=== PATIENT | female | born 1975 | race Caucasian/White ===

== ENCOUNTER 2017-10-09 20:16 | Emergency (ER) | payer BC ==
[2017-10-09] MEDS ORDERED: ONDANSETRON 4 MG/2 ML VIAL IVP STA (21:36)
[2017-10-09] MEDS ORDERED: MORPHINE SULFATE 2 MG/ML SYRINGE IVP STA (21:36)
[2017-10-09] MEDS ORDERED: SODIUM CHLORIDE 0.9% 1,000 ML IV STA (21:36)
[2017-10-09] MEDS ORDERED: diphenhydrAMINE 50 MG/ML 1 ML VIAL IVP STA (21:36)
[2017-10-09 23:11] LABS: Appearance,Urine Cloudy (Clear); Bacteria,Urine Rare /hpf; Bilirubin,Urine Negative (Negative); Blood,Urine Negative (Negative); Color,Urine Yellow; Glucose,Urine (UA) Negative (Negative); Ketones,Urine 2+ (Negative); Leukocyte Esterase,Urine Trace (Negative); Mucus,Urine Many /hpf; Nitrite,Urine Negative (Negative); PH, Urine 5.5 (5.0-8.0); Protein,Urine Trace (Negative); RBC,Urine 1 /hpf (0-5); Specific Gravity,Urine 1.018 (1.001-1.035); Squamous Epithelial Cell,Urine 6 /hpf (0-4); Urobilinogen,Urine <2.0 mg/dL (<2.0); WBC,Urine 2 /hpf (0-5)
[2017-10-09 23:12] LABS: Chloride 104 mmol/L (98-107)
[2017-10-09 23:13] LABS: ALT 29 U/L (9-52); AST 23 U/L (14-36); Albumin 4.1 g/dL (3.5-5.0); Alkaline Phosphatase 73 U/L (38-126); Amylase 45 U/L (30-110); Anion Gap 11 mmol/L; Blood Urea Nitrogen 10 mg/dL (7-17); Calcium 9.2 mg/dL (8.4-10.2); Carbon Dioxide 23 mmol/L (22-30); Glucose 103 mg/dL (74-99); Lipase 51 U/L (23-300); Potassium 3.9 mmol/L (3.5-5.1); Sodium 138 mmol/L (137-145); Total Bilirubin 0.6 mg/dL (0.2-1.3); Total Protein 7.4 g/dL (6.3-8.2)
[2017-10-09 23:14] LABS: Basophils % (A) 0 %; Eosinophils % (A) 0 %; HCT 41.1 % (34.0-46.0); HGB 13.5 gm/dL (11.4-16.0); Lymphocytes # (A) 1.7 k/uL (1.0-4.8); Lymphocytes % (A) 13 %; MCH 28.7 pg (25.0-35.0); MCHC 32.8 g/dL (31.0-37.0); MCV 87.5 fL (80.0-100.0); Mean Platelet Volume 7.1; Monocytes # (A) 0.5 k/uL (0-1.0); Monocytes % (A) 4 %; Neutrophils # (A) 10.3 k/uL (1.3-7.7); Neutrophils % (A) 82 %; Platelet Count 261 k/uL (150-450); RBC 4.69 m/uL (3.80-5.40); RDW 13.4 % (11.5-15.5); WBC 12.6 k/uL (3.8-10.6)
--- NOTE | 2017-10-09 23:30 | ED ---
Abdominal Pain HPI - General Chief Complaint: Abdominal Pain Stated Complaint: back & abdominal pain/nausea Time Seen by Provider: 10/09/17 21:09 Source: patient, family Mode of arrival: ambulatory Limitations: no limitations - History of Present Illness Initial Comments: 41-year-old female patient presents to the emergency department today for evaluation of left lower quadrant abdominal pain that radiates into her back. Patient states that she has had this pain for the last 5 days. States she did see her primary care physician and was diagnosed with diverticulitis. Patient say she has been taking Cipro and Flagyl since her pain seems to be worsening. Patient states that she did have a loose bowel movement today but there is no presence of blood. Patient is complaining of clear anal discharge. Patient denies any nausea or vomiting. Denies any fevers or chills. Denies any hematuria, dysuria, urinary frequency, urinary urgency. Denies any chance of . Patient denies any recent rash, shortness breath, chest pain, numbness, tingling, dizziness, weakness, headache, visual changes, or any other complaints. Patient also reports that she has been very anxious starting this evening. Patient states that they did start her on Neurontin on as well. States that she's been taking 300 mg daily. Patient states she did take this medication in the past and never had this type of reaction from it. - Related Data Home Medications Medication Instructions Recorded Confirmed Acetaminophen/Pamabrom [Midol 1 tab PO Q4H PRN 10/09/17 10/09/17 Caplet] Ciprofloxacin HCl [Cipro] 500 mg PO BID 10/09/17 10/09/17 Gabapentin [Neurontin] 300 mg PO TID 10/09/17 10/09/17 metroNIDAZOLE [Flagyl] 500 mg PO TID 10/09/17 10/09/17 traMADol HCL [Ultram] 50 - 100 mg PO TID PRN 10/09/17 10/09/17 Previous Rx's Medication Instructions Recorded Hydrocodone/Acetaminophen [Jackson 1 tab PO Q6HR PRN #12 tab 10/10/17 5-325] Allergies Allergy/AdvReac Type Severity Reaction Status Date / Time No Known Allergies Allergy Verified 10/09/17 21:34 Review of Systems ROS Statement: Those systems with pertinent positive or pertinent negative responses have been documented in the HPI. ROS Other: All systems not noted in ROS Statement are negative. Past Medical History Past Medical History: No Reported History History of Any Multi-Drug Resistant Organisms: None Reported Past Surgical History: Bowel Resection, Section, Cholecystectomy, Uterine Ablation Past Psychological History: No Psychological Hx Reported Smoking Status: Never smoker Past Alcohol Use History: None Reported Past Drug Use History: None Reported General Exam Limitations: no limitations General appearance: alert, in no apparent distress, other (This is a well- developed, well-nourished adult female patient in no acute distress. Vital signs upon presentation are temperature 98.3F, pulse 110, respirations 18, blood pressure 156/95, pulse ox 97% on room air.) Eye exam: Present: normal appearance, PERRL, EOMI. Absent: scleral icterus, conjunctival injection, periorbital swelling ENT exam: Present: normal exam, normal oropharynx, mucous membranes moist Respiratory exam: Present: normal lung sounds bilaterally. Absent: respiratory distress, wheezes, rales, rhonchi, stridor Cardiovascular Exam: Present: regular rate, normal rhythm, normal heart sounds. Absent: systolic murmur, diastolic murmur, rubs, gallop, clicks GI/Abdominal exam: Present: soft, tenderness (Left lower quadrant tenderness), normal bowel sounds. Absent: distended, guarding, rebound, rigid Back exam: Present: normal inspection. Absent: CVA tenderness (R), CVA tenderness (L) Neurological exam: Present: alert, oriented X3, CN II-XII intact Psychiatric exam: Present: normal affect, normal mood Skin exam: Present: warm, dry, intact, normal color. Absent: rash Course Vital Signs 10/09/17 10/09/17 10/10/17 20:31 21:15 02:11 Temperature 98.3 F 98.7 F 98.2 F Pulse Rate 110 H 76 Respiratory 18 16 Rate Blood Pressure 156/95 145/89 O2 Sat by Pulse 97 Oximetry Medical Decision Making - Medical Decision Making 41 year-old female patient presented to the emergency department today for evaluation of increased lower abdominal pain that radiates into the left side of her back. Physical examination did reveal some left lower quadrant abdominal tenderness. Labs reviewed and are relatively unremarkable. Urinalysis is negative for any infection. CT abdomen and pelvis with contrast was obtained to rule out diverticulitis as patient does have a history for this. CT did show septated cystic lesion to the uterus with an unclear etiology. Patient no evidence of diverticulitis or renal stone. Did perform transvaginal ultrasound to better evaluate the uterine lesion. Ultrasound did show a 3 x 2 cm cystic lesion to the endometrium. I did discuss findings and results with the patient. Did instruct her to follow-up with gynecology for further evaluation as soon as possible. Patient would like to see a supervisor tumbling and rolling out of [facility]. She is given Jackson for pain control. Return parameters were discussed in detail. She verbalizes understanding and agrees with this plan. - Lab Data Result diagrams: 10/09/17 22:44 10/09/17 22:44 Lab Results 10/09/17 10/09/17 10/09/17 Range/Units 22:44 22:44 22:44 WBC 12.6 H (3.8-10.6) k/uL RBC 4.69 (3.80-5.40) m/uL Hgb 13.5 (11.4-16.0) gm/dL Hct 41.1 (34.0-46.0) % MCV 87.5 (80.0-100.0) fL MCH 28.7 (25.0-35.0) pg MCHC 32.8 (31.0-37.0) g/dL RDW 13.4 (11.5-15.5) % Plt Count 261 (150-450) k/uL Neutrophils % 82 % Lymphocytes % 13 % Monocytes % 4 % Eosinophils % 0 % Basophils % 0 % Neutrophils # 10.3 H (1.3-7.7) k/uL Lymphocytes # 1.7 (1.0-4.8) k/uL Monocytes # 0.5 (0-1.0) k/uL Eosinophils # 0.0 (0-0.7) k/uL Basophils # 0.0 (0-0.2) k/uL Sodium 138 (137-145) mmol/L Potassium 3.9 (3.5-5.1) mmol/L Chloride 104 (98-107) mmol/L Carbon Dioxide 23 (22-30) mmol/L Anion Gap 11 mmol/L BUN 10 (7-17) mg/dL Creatinine 0.50 L (0.52-1.04) mg/dL Est GFR (CKD-EPI)AfAm >90 (>60 ml/min/1.73 sqM) Est GFR (CKD-EPI)NonAf >90 (>60 ml/min/1.73 sqM) Glucose 103 H (74-99) mg/dL Calcium 9.2 (8.4-10.2) mg/dL Total Bilirubin 0.6 (0.2-1.3) mg/dL AST 23 (14-36) U/L ALT 29 (9-52) U/L Alkaline Phosphatase 73 (38-126) U/L Total Protein 7.4 (6.3-8.2) g/dL Albumin 4.1 (3.5-5.0) g/dL Amylase 45 (30-110) U/L Lipase 51 (23-300) U/L Urine Color Yellow Urine Appearance Cloudy H (Clear) Urine pH 5.5 (5.0-8.0) Ur Specific Rolla 1.018 (1.001-1.035) Urine Protein Trace H (Negative) Urine Glucose (UA) Negative (Negative) Urine Ketones 2+ H (Negative) Urine Blood Negative (Negative) Urine Nitrite Negative (Negative) Urine Bilirubin Negative (Negative) Urine Urobilinogen <2.0 (<2.0) mg/dL Ur Leukocyte Esterase Trace H (Negative) Urine RBC 1 (0-5) /hpf Urine WBC 2 (0-5) /hpf Ur Squamous Epith Cells 6 H (0-4) /hpf Urine Bacteria Rare H (None) /hpf Urine Mucus Many H (None) /hpf - Radiology Data Radiology results: report reviewed CT abdomen and pelvis with contrast was obtained. Report was reviewed in its entirety. Impression by Dr. Canada shows no renal stone or obstruction. Normal appendix. Septated cystic enlargement of the uterine cavity is nonspecific. Follow-up is recommended. I would consider both inflammatory and neoplastic process. Transvaginal ultrasound of the pelvis is obtained. Report was reviewed in its entirety. Impression by Dr. Canada shows right ovary not seen. No evidence of ovarian torsion. There is complex cystic enlargement of the endometrial cavity measuring 3 x 2 cm. Disposition Clinical Impression: Endometrial mass, Abdominal pain Disposition: HOME SELF-CARE Condition: Good Instructions: Ovarian Cyst (ED), Abdominal Pain (ED) Additional Instructions: Follow-up with supervisor tumbling and rolling for reevaluation as soon as possible. Obtain medical records at a later date, call to make sure the disc burner is working. Follow-up with primary care physician for recheck in 1-2 days for Return here immediately for any new, worsening, or concerning symptoms. Prescriptions: Hydrocodone/Acetaminophen [Jackson 5-325] 1 tab PO Q6HR PRN #12 tab PRN Reason: Pain Is patient prescribed a controlled substance at d/c from ED?: No Referrals: Mesfin Cedillo MD [Primary Care Provider] - 1-2 days Time of Disposition: 01:53
--- NOTE | 2017-10-09 23:47 | CT ---
EXAMINATION TYPE: CT abdomen pelvis w con DATE OF EXAM: 10/09/2017 COMPARISON: None HISTORY: ABD PAIN CT DLP: 1790.23 mGycm Automated exposure control for dose reduction was used. TECHNIQUE: Helical acquisition of images was performed from the lung bases through the pelvis. CONTRAST: Performed without Oral Contrast and with IV Contrast, patient injected with 100 mL of Isovue 300. FINDINGS: Lung bases are clear. There is no pleural effusion. Liver spleen pancreas appear normal. There are cl ips from cholecystectomy. Bile ducts are not dilated. There is no adrenal mass. Kidneys show satisfac tory contrast opacification. There is no hydronephrosis. Appendix appears normal. Bladder distends sm oothly. There is no ascites. There is no sign of free air. Lumbar spine appears intact. There is 3 cm irregular cystic enlargement of the uterine cavity in the uterine fundus. There are other smaller cy stic areas in the uterine fundus. There are no adnexal masses. There is no evidence of a hernia. I se e no intestinal wall thickening. There are no dilated loops. IMPRESSION: NO RENAL STONE OR OBSTRUCTION. NORMAL APPENDIX. SEPTATED CYSTIC ENLARGEMENT OF THE UTERINE CAVITY IS NONSPECIFIC. FOLLOW-UP IS RECOMMENDED. I WOULD C ONSIDER BOTH INFLAMMATORY AND NEOPLASTIC PROCESS.
[2017-10-09] MEDS ORDERED: MORPHINE SULFATE 4 MG/ML SYRINGE IVP STA (23:56)
--- NOTE | 2017-10-10 00:56 | US ---
EXAMINATION TYPE: US transvaginal DATE OF EXAM: 10/10/2017 COMPARISON: NONE CLINICAL HISTORY: Pain/abnormal CT. Pain f/u to CT ablation done 10 years ago. TECHNIQUE: Transvaginal (TV). EXAM MEASUREMENTS: Uterus: 9.9 x 4.8 x 4.6 cm Left Ovary: 4.1 x 2.2 x 2.0 cm 1. Uterus: Anteverted Two anechoic areas seen largest with septation measuring 2.1 x 2.9 x 2.6cm. Nabothian cyst seen. 2. Endometrium: Not well visualized. 3. Right Ovary: Obscured by overlying bowel gas 4. Left Ovary: Complex cystic area measuring 1.0 x 1.4 x 1.2cm. Spectral, color and waveform doppler imaging shows good arterial and venous flow within the left ov deanna; there is no evidence for ovarian torsion. 5. Bilateral Adnexa: wnl 6. Posterior cul-de-sac: wnl IMPRESSION: Right ovary is not seen. No evidence of ovarian torsion. There is complex cystic enlargem ent of the endometrial cavity measures 3 x 2 cm.
[2017-10-10 02:12] VITALS: BP 145/89; PULSE 76; RESP 16; TEMP 98.2
== END 2017-10-10 02:12 | disposition home or self-care (01) ==
LOC: EC 20:16
DX: R10.32 Left lower quadrant pain (principal); N85.8 Other specified noninflammatory disorders of uterus; M54.5 Low back pain; K62.89 Other specified diseases of anus and rectum; F41.9 Anxiety disorder, unspecified; Z79.899 Other long term (current) drug therapy; Z90.49 Acquired absence of other specified parts of digestive tract
CPT/HCPCS: 36415; 80053; 82150; 83690; 85025; 81001; 87040; 74177; 99284; 96374; 96375 ×2; 96376; 96361; J1200; J2405; J2270; Q9967; 76830; 93976

== ENCOUNTER 2024-04-28 19:29 | Outpatient (CLI) | payer BC ==
--- NOTE | 2024-05-11 20:22 | P.PCN ---
Date of Procedure: 04/28/24 Operative Findings: CPAP titration report Date of service is 05/11/2024 History This is a 48-year-old female patient was diagnosed having severe obstructive sleep apnea with an AHI of 81.4. The patient underwent a home sleep study in January 2024 that showed severe obstructive sleep apnea with significant nocturnal oxygen desaturations. The patient has Chronic hypersomnia and sleepiness with an Arcadia score of 16. The patient has tonsillar enlargement bilaterally and the patient has restlessness in her lower extremities maintained on a combination of gabapentin and tramadol for symptom control. She also has hypertension. Based on that, a CPAP titration was ordered. Pertinent physical findings Weight is 316 pounds with a BMI of 37.8 Technical description The patient was studied using a standard complex polysomnography protocol that included recording of the Lead II EKG, Central, occipital and frontal EEG, right and left outer canthus EOG, submental EMG, right and left anterior tibialis EMG, respiratory airflow by thermocouple and or pressure/flow transducer, respiratory efforts by abdominal and thoracic PVDF belts, oxygen saturation by cable oximetry. Position by observation synchronized the PSG. Equipment used: [employer] [facility] [employer]. Stepwise CPAP titration was done to eliminate all obstructive respiratory events. Sleep characteristics The total recording duration was 377.9 minutes. The total time available for sleep was 369.5 minutes. The total sleep time was 289.5 minutes. Overall sleep efficiency was 78.3%. The latest to sleep onset was 40 minutes. The sleep architecture was characterized by 6% stage I, 56.3% stage II, 6.4% stage III and 33.7% REM sleep. CPAP titration summary The patient was started initially CPAP pressure of 5 cm of water and the patient was great increase by intervals of 1 cm to reach a maximum CPAP pressure of 15 cm of water. CPAP therapy was ineffective and the patient continued to have an elevated AHI and the patient was still encountering oxygen desaturations while being on CPAP therapy especially during REM sleep. At that point, the patient was switched to a BiPAP and utilize pressures included 14/10, 15/11, 16/12 and 17/13 cm of water. I again reviewed the titration and it was obvious that the patient was doing much better with BiPAP therapy compared to CPAP. Elevated BiPAP pressures measured, the patient had a lower AHI and there was adequate elimination of the obstructive respiratory events with no significant de saturations. Cardiac summary The average heart rate was 67 with a minimum heart rate of 45 and a maximum heart rate of 102 and the rhythm was sinus Arousal summary The patient total of 77 arousals throughout the sleep study with a arousal index of 16. The majority of the arousals were spontaneous. The respiratory arousal index was 6.8 and those were arousals related to obstructive respiratory events. Limb movement summary The patient total of 93 periodic limb movement activity with an index of 19.3. Assessment Severe symptomatic MARY JANE with an AHI of 81.4. The patient underwent a successful BiPAP titration. CPAP therapy was suboptimal and the patient failed to achieve adequate elimination of the obstructive respiratory events and the various CPAP pressures utilized. Based on success and comfort reasons, the patient was switched to a BiPAP titration. BiPAP therapy was successful, compared to CPAP therapy. Obesity with a BMI of 57.8 Chronic hypersomnia and sleepiness with an Arcadia score of 16 Hypertension Bilateral tonsillar enlargement Plan Will offer the patient a BiPAP machine. Prefer a VPAP auto at the EPAP minimum of 10 and maximum pressure of 18 and a pressure support of 4. The patient will be offered an AirFit P10 medium size nasal pillows. Encourage weight loss with optimize sleep hygiene measures. Maintain regular sleep schedule. See me back in the office in 30 to 90 days to assess clinical response and compliancy and further adjustments in treatment will be done accordingly.
== END 2024-04-29 05:20 | disposition home or self-care (01) ==
LOC: 3 N SLEEP 19:29
PROVIDERS: ATTEND Internal Medicine Critical Care Medicine
DX: G47.33 Obstructive sleep apnea (adult) (pediatric) (principal); E66.9 Obesity, unspecified; J35.1 Hypertrophy of tonsils; I10 Essential (primary) hypertension; Z68.43 Body mass index [BMI] 50.0-59.9, adult; Z99.89 Dependence on other enabling machines and devices
CPT/HCPCS: 95811